=== PATIENT | female | born 1995 | race Two or more races ===

== ENCOUNTER 2022-02-18 14:26 | Emergency (ER) | payer OTHER ==
[~2022-02-18] VITALS: Ht 165.1 cm; Wt 95.3 kg
[2022-02-18] MEDS ORDERED: PROTONIX20 MG PO (14:47)
[2022-02-18] MEDS ORDERED: ZOFRAN8 MG (14:47)
== END 2022-02-18 19:33 | disposition home or self-care (01) ==
LOC: ER 14:26
DX: O26.891 Other specified pregnancy related conditions, first trimester (principal); Z3A.11 11 weeks gestation of pregnancy; R10.2 Pelvic and perineal pain

== ENCOUNTER 2022-04-02 19:14 | Emergency (ER) | payer OTHER ==
[~2022-04-02] VITALS: Ht 162.6 cm; Wt 94.3 kg
[~2022-04-02 19:14] MED LIST: PROTONIX20 MG PO; ZOFRAN8 MG
[2022-04-02] MEDS ORDERED: PRENATA CHEWAB1 EACH PO (19:38)
== END 2022-04-03 01:52 | disposition home or self-care (01) ==
LOC: ER 19:14
DX: O99.612 Diseases of the digestive system complicating pregnancy, second trimester (principal); Z3A.17 17 weeks gestation of pregnancy; A09 Infectious gastroenteritis and colitis, unspecified

== ENCOUNTER 2022-09-08 04:40 | Inpatient (IN) | payer OTHER ==
[~2022-09-08] VITALS: Ht 167.6 cm; Wt 101.2 kg
[~2022-09-08 04:40] MED LIST changes: +PRENATA CHEWAB1 EACH PO
[2022-09-08] MEDS ORDERED: CYANOCOBAL1000 MCG/1 (08:09)
[2022-09-08] MEDS ORDERED: ONDANSETRON HCL4 MG (08:09)
== END 2022-09-10 14:30 | disposition home or self-care (01) | DRG 788 ==
LOC: LDR 04:40 → OB/GYN 19:16
PROVIDERS: ADMIT Specialist; ATTEND Specialist
PROC: 4A1HXCZ Monitoring of Products of Conception, Cardiac Rate, External Approach (ICD-10-PCS; 2022-09-08)
PROC: 10D00Z1 Extraction of Products of Conception, Low, Open Approach (ICD-10-PCS; principal; 2022-09-08 17:45)
DX: O82 Encounter for cesarean delivery without indication (principal); Z3A.39 39 weeks gestation of pregnancy; Z37.0 Single live birth; Z20.822 Contact with and (suspected) exposure to COVID-19

== ENCOUNTER 2024-06-07 08:15 | Inpatient (IN) | payer OTHER ==
[~2024-06-07] VITALS: Ht 162.6 cm; Wt 3.6 kg
[~2024-06-07 08:15] MED LIST changes: +CYANOCOBAL1000 MCG/1; +ONDANSETRON HCL4 MG
[2024-06-07 09:23] LABS: HEMATOCRIT 33.9 % (36.0-45.00); HEMOGLOBIN 11.8 g/dL (12.0-15.00); MEAN CELL VOLUME 87.1 fL (80.00-100.00); MEAN CORPUSCULAR HEMOGLOBIN 30.2 pg (27.00-32.0); MEAN CORPUSCULAR HGB CONC 34.6 g/dl (32.0-36.0); PLATELET COUNT 184 K/uL (150-450); RED BLOOD COUNT 3.89 M/uL (4.00-6.00)
[2024-06-07 09:24] LABS: RED CELL DISTRIBUTION WIDTH 17.2 % (11.5-14.5)
[2024-06-07 10:04] LABS: ALBUMIN 2.6 gm/dL (3.4-5.0); BILIRUBIN TOTAL 0.41 mg/dL (0.3-1.2); CALCIUM 8.7 mg/dL (8.5-10.1); CREATININE SERUM 0.61 mg/dL (0.55-1.02); GFR 115.96; GLOBULINA 3.6 G/DL (2.4-3.5); INR 0.97; PARTIAL THROMBOPLASTIN TIME 30.5 SECONDS (22.0-34.0); POTASSIUM 3.76 mEq/L (3.5-5.1); PROTHROMBIN TIME 10.2 SECONDS (9.0-11.5); TOTAL PROTEIN 6.2 gm/dL (6.4-8.2)
[2024-06-07 10:05] LABS: PH,URINE 6.5 (5.0-8.0); URINE APPEARANCE Clear; URINE BILIRRUBIN Small (NEGATIVE); URINE BLOOD Negative; URINE COLOR Dark Yellow; URINE GLUCOSE Negative (NEGATIVE); URINE LEUKOCYTE Trace; URINE NITRATE Negative; URINE PROTEIN 30 (NEGATIVE)
[2024-06-07 10:11] LABS: URINE BACTERIA 2791.9 uL (0.0-1933); URINE EPITHELIAL CELLS 90.5 uL (0.0-38.8); URINE RBC 4.7 uL (0.0-20.8); URINE WBC 54.7 uL (0.0-23.2)
[2024-06-07 10:32] LABS: URINE CRYSTALS FEW /HPF
[2024-06-13] MEDS ORDERED: KETOROLAC TROMETHAMINE 60 MG VIAL IM ONE (17:30)
[2024-06-13] MEDS ORDERED: MEPERIDINE HCL/PF 50 MG/ML VIAL IV SCH (17:30)
[2024-06-13] MEDS ORDERED: PROMETHAZINE HCL 25 MG/ML AMPUL IV SCH (17:30)
[2024-06-13 21:18] LABS: ABG PH 7.273 (7.35-7.45); ABG pCO2 49.4 mmHg (35-45)
[2024-06-13 21:19] LABS: ABG PO2 38.7 mmHg (80-100); BASE EXCESS -4.9 mmol/l; BICARBONATE 22.3 mmol/l (23-25); Tco2 23.8 mmol/l
[2024-06-13 21:20] LABS: SaO2 63.6 %; o2 21 %
[2024-06-13 21:32] LABS: HEMATOCRIT 31.3 % (36.0-45.00); HEMOGLOBIN 10.8 g/dL (12.0-15.00); MEAN CELL VOLUME 87.3 fL (80.00-100.00); MEAN CORPUSCULAR HGB CONC 34.4 g/dl (32.0-36.0); PLATELET COUNT 155 K/uL (150-450); RED BLOOD COUNT 3.59 M/uL (4.00-6.00); RED CELL DISTRIBUTION WIDTH 17.3 % (11.5-14.5)
[2024-06-14] MEDS ORDERED: SIMETHICONE 125 MG CAPSULE PO SCH (09:00)
[2024-06-14] MEDS ORDERED: OxyCODONE HCL/APAP UD (PERCOCET) PO SCH (09:00)
[2024-06-14] MEDS ORDERED: DOCUSATE CALCIUM 240 MG CAPSULE PO SCH (09:00)
[2024-06-14] MEDS ORDERED: FF) RHO(D) IMMUNE GLOBULIN (POM) IM SCH (19:30)
== END 2024-06-15 14:32 | disposition home or self-care (01) | DRG 788 ==
LOC: OB/GYN 06-13 06:21 → O/R 06-13 06:21 → OB/GYN 06-13 07:00
PROVIDERS: ADMIT Specialist; ATTEND Specialist
PROC: 4A1HXCZ Monitoring of Products of Conception, Cardiac Rate, External Approach (ICD-10-PCS; 2024-06-13)
PROC: 10D00Z1 Extraction of Products of Conception, Low, Open Approach (ICD-10-PCS; principal; 2024-06-13 07:00)
DX: O34.211 Maternal care for low transverse scar from previous cesarean delivery (principal); Z3A.39 39 weeks gestation of pregnancy; Z37.0 Single live birth; Z20.822 Contact with and (suspected) exposure to COVID-19